=== PATIENT | female | born 1995 | race Caucasian/White ===

== ENCOUNTER 2017-05-16 09:49 | Emergency (ER) | payer SELFPAY ==
[~2017-05-16] VITALS: Ht 149.9 cm; Wt 59.0 kg
[2017-05-16 09:49] VITALS: BP 118/81
== END 2017-05-16 10:37 | disposition home or self-care (01) ==
LOC: ER 09:52
DX: J32.9 Chronic sinusitis, unspecified (principal)
CPT/HCPCS: 99283; A4606; Z7610

== ENCOUNTER 2021-07-27 22:17 | Emergency (ER) | payer MEDICAID, OTHER ==
[~2021-07-27] VITALS: Ht 149.9 cm; Wt 61.7 kg
--- NOTE | 2021-07-27 23:27 | NUR ---
TO ER BED 4. BIBS C/O DOG BITE TO R WRIST APPROX AT 2130. 3 PUNCTURES NOTED. OPEN TO AIR, NON BLEEDING. PT STATES "TETANUS VACCINE RCVD 4 YEARS AGO". AWAITING MD WALKER
[2021-07-27] MEDS ORDERED: AMOX/CLAVULANATE 875 MG TABLET PO ONE (23:30)
[2021-07-27] MEDS ORDERED: IBUPROFEN 400 MG TABLET PO ONE (23:30)
[2021-07-27] MEDS ORDERED: AMOX/CLAVULANATE 875 MG TABLET ONE (23:33)
[2021-07-27] MEDS ORDERED: IBUPROFEN 400 MG TABLET ONE (23:33)
--- NOTE | 2021-07-27 23:38 | NUR ---
PT REFUSED WRIST XRAY STATES SHE DOES NOT BELIEVE IT IS BROKEN. AWARE.
[2021-07-27] MEDS ORDERED: AMOX-430 PO (23:39)
[2021-07-27 23:52] VITALS: BP 110/63
--- NOTE | 2021-07-27 23:52 | NUR ---
Patient discharged to home in stable condition. Written and verbal after care instructions given. Patient verbalizes understanding of instruction.
== END 2021-07-27 23:53 | disposition home or self-care (01) ==
LOC: ER 22:22
DX: S61.551A Open bite of right wrist, initial encounter (principal); Z79.899 Other long term (current) drug therapy; W54.0XXA Bitten by dog, initial encounter; Y93.89 Activity, other specified; Y92.89 Other specified places as the place of occurrence of the external cause; Y99.8 Other external cause status

== ENCOUNTER 2021-09-25 22:34 | Emergency (ER) | payer OTHER ==
[~2021-09-25] VITALS: Ht 149.9 cm; Wt 61.2 kg
[~2021-09-25 22:34] MED LIST: AMOX-430 PO
[2021-09-25 23:47] LABS: BILIRUBIN,URINE NEGATIVE (NEGATIVE); COLOR,URINE YELLOW (YELLOW); LEUKOCYTE ESTERASE ,URINE NEGATIVE (NEGATIVE); NITRITE, URINE NEGATIVE (NEGATIVE); PROTEIN,URINE NEGATIVE (NEGATIVE); UGLUCOSE NEGATIVE (NEGATIVE); UROBILINOGEN,URINE 0.2 EU/dL (0.2)
[2021-09-25 23:54] LABS: BACTERIA,URINE Rare /HPF (None Seen); RBC,URINE 0-2 /HPF (0-2); SQUAMOUS EPITHELIAL CELL,UR Few /HPF (None Seen); WBC,URINE 0-2 /HPF (0-3)
--- NOTE | 2021-09-26 00:17 | NUR ---
Patient discharged to home in stable condition. Written and verbal after care instructions given. Patient verbalizes understanding of instruction.
[2021-09-26 00:18] VITALS: BP 128/77
== END 2021-09-26 00:24 | disposition home or self-care (01) ==
LOC: ER 22:37
DX: Z71.1 Person with feared health complaint in whom no diagnosis is made (principal); O26.899 Other specified pregnancy related conditions, unspecified trimester; Z3A.00 Weeks of gestation of pregnancy not specified; Z79.899 Other long term (current) drug therapy
CPT/HCPCS: 81001; 84703-TC

== ENCOUNTER 2021-11-19 00:55 | Emergency (ER) | payer OTHER ==
[~2021-11-19] VITALS: Ht 149.9 cm; Wt 63.5 kg
--- NOTE | 2021-11-19 02:22 | NUR ---
Patient discharged to home in stable condition. Written and verbal after care instructions given. Patient verbalizes understanding of instruction.
[2021-11-19 02:23] VITALS: BP 112/75
== END 2021-11-19 02:24 | disposition home or self-care (01) ==
LOC: ER 00:57
DX: O26.92 Pregnancy related conditions, unspecified, second trimester (principal); R07.89 Other chest pain; Z3A.00 Weeks of gestation of pregnancy not specified
CPT/HCPCS: 71045-TC

== ENCOUNTER 2022-02-11 13:02 | Emergency (ER) | payer OTHER ==
[~2022-02-11] VITALS: Ht 144.8 cm; Wt 70.8 kg
[2022-02-11 13:13] VITALS: BP 108/58
--- NOTE | 2022-02-11 14:08 | NUR ---
Patient discharged to home in stable condition. Written and verbal after care instructions given. Patient verbalizes understanding of instruction.
== END 2022-02-11 14:08 | disposition home or self-care (01) ==
LOC: ER 13:08
DX: O26.899 Other specified pregnancy related conditions, unspecified trimester (principal); M65.4 Radial styloid tenosynovitis [de Quervain]; M25.532 Pain in left wrist; Z3A.00 Weeks of gestation of pregnancy not specified

== ENCOUNTER 2022-09-29 00:45 | Emergency (ER) | payer OTHER ==
[~2022-09-29] VITALS: Ht 147.3 cm; Wt 61.9 kg
[2022-09-29 01:15] VITALS: BP 101/55; TEMP 98
--- NOTE | 2022-09-29 01:20 | NUR ---
CC RT BREAST PAIN TOOK PAIN MEDS, NO RELIER, +BREAST FEEDING. PATIENT CHANGED TO GOWN. PLACED COMFORTABLY IN BED.
--- NOTE | 2022-09-29 01:25 | NUR ---
SEEN BY DR HERRERA ACCOMPANIED BY LUCIANO FERNANDEZ AT BEDSIDE.
--- NOTE | 2022-09-29 01:48 | NUR ---
Patient discharged to home in stable condition. Written and verbal after care instructions given. Patient verbalizes understanding of instruction.
== END 2022-09-29 01:49 | disposition home or self-care (01) ==
LOC: ER 00:56
DX: N64.4 Mastodynia (principal); Z79.899 Other long term (current) drug therapy

== ENCOUNTER 2023-11-27 18:28 | Emergency (ER) | payer OTHER ==
[~2023-11-27] VITALS: Ht 149.9 cm; Wt 57.6 kg
[2023-11-27 19:07] LABS: BASOPHILS % (AUTO) 0.1 % (0.0-2.0); EOSINOPHILS % (AUTO) 0.7 % (0.0-6.0); HEMATOCRIT 36 % (33-45); HEMOGLOBIN 12.3 g/dL (11.5-14.8); LYMPHOCYTES # (AUTO) 1.6 K/uL (0.8-4.8); LYMPHOCYTES % (AUTO) 35.4 % (20.0-44.0); MEAN CORPUSCULAR HEMOGLOBIN 28 PG (26.0-33.0); MEAN CORPUSCULAR HGB CONC 34 g/dl (31.0-36.0); MEAN CORPUSCULAR VOLUME 84 fL (82-100); MONOCYTES # (AUTO) 0.4 K/uL (0.1-1.30); MONOCYTES % (AUTO) 8.2 % (2.0-12.0); NEUTROPHILS # (AUTO) 2.6 K/uL (1.8-8.9); NEUTROPHILS % (AUTO) 55.6 % (43.0-81.0); PLATELET COUNT (AUTO) 105 K/uL (150-450); RED BLOOD CELL COUNT(AUTO) 4.33 MIL/uL (4.0-5.2); RED CELL DISTRIBUTION WIDTH 13.4 % (11.5-15.0); WHITE BLOOD COUNT (AUTO) 4.6 K/uL (4.3-11.0)
[2023-11-27 19:15] LABS: APPEARANCE,URINE Slightly Cloudy (CLEAR); BILIRUBIN,URINE MODERATE (NEGATIVE); BLOOD, URINE Trace-intact Ery/uL (NEGATIVE); COLOR,URINE YELLOW (YELLOW); KETONES,URINE Negative (NEGATIVE); LEUKOCYTE ESTERASE ,URINE Negative (NEGATIVE); NITRITE, URINE Negative (NEGATIVE); PROTEIN,URINE Negative (NEGATIVE); UGLUCOSE Negative (NEGATIVE); UROBILINOGEN,URINE 0.2 EU/dL (0.2)
[2023-11-27 19:19] LABS: PREGNANCY TEST URINE QUAL NEGATIVE (NEGATIVE)
[2023-11-27 19:32] LABS: ADD URINE CULTURE NO; BACTERIA,URINE Few /HPF (None Seen); WBC,URINE 0-2 /HPF (0-3)
[2023-11-27 20:12] LABS: CALCIUM, SERUM 8.5 mg/dL (8.5-10.1); CREATININE 0.6 mg/dL (0.6-1.3); POTASSIUM 3.5 mmol/L (3.5-5.1)
[2023-11-27 20:14] LABS: ALBUMIN 3.3 g/dL (3.4-5.0); BILIRUBIN,DIRECT 0.1 mg/dL (0.0-0.2); BILIRUBIN,TOTAL 0.5 mg/dL (0.2-1.0)
[2023-11-27 21:36] VITALS: BP 111/61; TEMP 98.6; O2SAT 99
== END 2023-11-27 21:39 | disposition home or self-care (01) ==
LOC: ER 18:32
DX: N93.9 Abnormal uterine and vaginal bleeding, unspecified (principal); R10.2 Pelvic and perineal pain; Z79.899 Other long term (current) drug therapy
CPT/HCPCS: 36415; 80048-TC; 80076-TC; 81001; 83690-TC; 84702-TC; 84703-TC; 85025-TC; 87086-TC